=== PATIENT | male | born 1925 | race Caucasian/White ===

== ENCOUNTER 2017-10-06 23:41 | Inpatient (IN) ==
[2017-10-07] MEDS ORDERED: ALBUTEROL NEB SOLN 5 MG/ML 20 ML/BOTTLE CONT NEB STA (00:31)
[2017-10-07] MEDS ORDERED: cefTRIAXone 1,000 MG in SODIUM CHLORIDE 0.9% 100 ML IV STA (00:31)
[2017-10-07] MEDS ORDERED: SODIUM CHLORIDE 0.9% 1,000 ML IV STA (00:31)
[2017-10-07] MEDS ORDERED: PANTOPRAZOLE 40 MG VIAL IV STA (00:31)
[2017-10-07] MEDS ORDERED: ONDANSETRON 4 MG/2 ML VIAL IV STA (00:31)
[2017-10-07] MEDS ORDERED: metroNIDAZOLE INJ 500 MG in PREMIX 1 EACH IV STA (00:31)
[2017-10-07] MEDS ORDERED: metroNIDAZOLE 500 MG/100 ML PREMIX IV ONE (00:43)
[2017-10-07] MEDS ORDERED: cefTRIAXone 1,000 MG VIAL ONE (00:43)
[2017-10-07] MEDS ORDERED: PANTOPRAZOLE 40 MG VIAL IV ONE (00:43)
[2017-10-07] MEDS ORDERED: ONDANSETRON 4 MG/2 ML VIAL ONE (00:43)
[2017-10-07 01:04] LABS: Apearance,Urine CLOUDY (Clear); Bacteria,Urine Many /HPF (Few); Bilirubin,Urine Negative (Negative); Blood, Urine Moderate mg/dL (Negative); Glucose,Urine (UA) Negative (Negative); Ketones,Urine 5 mg/dL (Negative); Mucus,Urine Occasional /LPF (Occasional); Nitrite,Urine Negative (Negative); Protein,Urine 100 MG/DL; RBC,Urine 58 /HPF (0-4); Squamous Epithelial Cell,Urine Occasional /HPF (0-10); Urine Color Amber (Yellow); Urine Specific Gravity 1.017 (1.001-1.035); Urine Urobilinogen < 2.0 EU/DL (0.2-1.0); WBC,Urine 32 /HPF (0-6)
[2017-10-07 01:05] LABS: Hematocrit 43.6 VOL% (42.0-52.0); Hemoglobin 14.3 GM/DL (14.0-18.0); Immature Granulocytes % 0.2 %; Immature Granulocytes Absolute 0.01 #; Lymphocytes # 0.2 10*3/uL (1.4-4.0); Lymphocytes % 3.8 % (21.2-54.2); Mean Corpuscular HGB Conc 32.8 GM/DL (32-36); Mean Corpuscular Hemoglobin 32 PG (27-34); Mean Corpuscular Volume 96.5 FL (87-102); Mean Platelet Volume 11.3 FL (9.6-12.0); Monocytes # 0.6 10*3/uL (0.11-0.8); Monocytes % 13.2 % (1.7-12.7); Neutrophils # 3.7 10*3/uL (1.4-7.4); Neutrophils % 82.8 % (38.7-73.9); Platelet Count 239 T/CUMM (130-400); Red Blood Count 4.52 MC/CUMM (3.8-5.5); Red Cell Distribution Width 13.3 % (9.3-17.3); White Blood Count 4.5 T/CUMM (4-12)
[2017-10-07 01:15] LABS: Alanine Aminotransferase 31 U/L (16-61); Albumin 3.3 G/DL (3.4-5.0); Alkaline Phosphatase 63 U/L (45-117); Amylase 72 U/L (25-115); Aspartate Amino Transferase 44 U/L (0-37); Blood Urea Nitrogen 21 MG/DL (7-18); CKMB % 1.3 %; Calcium 8.1 MG/DL (8.5-10.1); Glucose 113 MG/DL (74-106); Lactic Acid 5.1 MMOL/L (0.4-2.0); Potassium 4.4 MMOL/L (3.5-5.1); Sodium 143 MMOL/L (136-145); Total Protein 6.9 G/DL (6.4-8.3)
[2017-10-07] MEDS ORDERED: SODIUM CHLORIDE 0.9% 2,250 ML IV ONE (03:21)
[2017-10-07 03:37] LABS: Band Neutrophils 26 % (0-10); Lymphocytes 7 % (20-55); Myelocytes 3 %; Segmented Neutrophils 57 % (50-85)
[2017-10-07 03:38] LABS: Platelet Estimate Normal; Total Cells Counted 100
[2017-10-07] MEDS ORDERED: ONDANSETRON 4 MG/2 ML VIAL IV PRN (04:06)
[2017-10-07] MEDS ORDERED: ALBUTEROL 2.5 MG/3 ML NEB RESP TX PRN (04:12)
[2017-10-07] MEDS ORDERED: MAGNESIUM SULF RIDER 4 GM in PREMIX 1 EACH IV PRN (04:21)
[2017-10-07] MEDS ORDERED: MAGNESIUM SULF RIDER 2 GM in PREMIX 1 EACH IV PRN (04:21)
[2017-10-07] MEDS ORDERED: LEVOFLOXACIN INJ 150 ML IV ONE (04:49)
[2017-10-07] MEDS: LEVOFLOXACIN INJ 750 MG in PREMIX 1 EACH IV SCH (04:55)
[2017-10-07 05:05] LABS: Lactic Acid 5.6 MMOL/L (0.4-2.0)
[2017-10-07] MEDS ORDERED: MAGNESIUM SULF INJ 3 GM in SODIUM CHLORIDE 0.9% 100 ML IV ONE (06:00)
[2017-10-07] MEDS ORDERED: GLUCAGON 1 MG VIAL IM PRN (06:16)
[2017-10-07] MEDS: INSULIN LISPRO 100 UNIT/ML SUBCUT SCH ×3 (07:50→17:46)
[2017-10-07] MEDS: ALBUTEROL 2.5 MG/3 ML NEB RESP TX SCH ×3 (07:51→19:13)
[2017-10-07] MEDS: PIPERACILLIN/TAZOBACTAM 3,375 MG in SODIUM CHLORIDE 0.9% 100 ML IV SCH ×2 (08:57→16:19)
[2017-10-07] MEDS: ENOXAPARIN 40 MG/0.4 ML SYRINGE SUBCUT SCH (08:58)
[2017-10-07] MEDS: PANTOPRAZOLE 40 MG VIAL IV SCH (08:58)
[2017-10-07] MEDS: SODIUM CHLORIDE 0.9% 1,000 ML IV SCH ×2 (09:02→14:36)
[2017-10-07] MEDS ORDERED: LORazepam 2 MG/1 ML VIAL IV PRN (09:12)
[2017-10-07 10:11] LABS: Lactic Acid 3.9 MMOL/L (0.4-2.0)
[2017-10-07] MEDS: MORPHINE 2 MG/1 ML SYRINGE IV PRN ×2 (10:38→14:34)
[2017-10-07] MEDS: LORazepam 2 MG/1 ML VIAL IV PRN ×2 (10:39→14:37)
[2017-10-07 15:01] LABS: Lactic Acid 2.5 MMOL/L (0.4-2.0)
[2017-10-08] MEDS: ALBUTEROL 2.5 MG/3 ML NEB RESP TX SCH ×4 (00:27→19:25)
[2017-10-08] MEDS: PIPERACILLIN/TAZOBACTAM 3,375 MG in SODIUM CHLORIDE 0.9% 100 ML IV SCH ×4 (00:39→23:28)
[2017-10-08] MEDS: INSULIN LISPRO 100 UNIT/ML SUBCUT SCH ×4 (01:27→18:45)
[2017-10-08] MEDS: LEVOFLOXACIN INJ 750 MG in PREMIX 1 EACH IV SCH (04:42)
[2017-10-08 06:17] LABS: Basophils % 0.1 % (0.0-0.8); Eosinophils % 0.1 % (0.00-10.9); Hematocrit 34.3 VOL% (42.0-52.0); Immature Granulocytes % 2.2 %; Immature Granulocytes Absolute 0.25 #; Lymphocytes # 0.5 10*3/uL (1.4-4.0); Mean Corpuscular HGB Conc 34.1 GM/DL (32-36); Mean Corpuscular Hemoglobin 32 PG (27-34); Mean Corpuscular Volume 93.7 FL (87-102); Mean Platelet Volume 11.8 FL (9.6-12.0); Monocytes # 0.9 10*3/uL (0.11-0.8); Monocytes % 8.2 % (1.7-12.7); Neutrophils # 9.7 10*3/uL (1.4-7.4); Neutrophils % 85.4 % (38.7-73.9); Red Blood Count 3.66 MC/CUMM (3.8-5.5); Red Cell Distribution Width 13.7 % (9.3-17.3)
[2017-10-08 06:28] LABS: Calcium 7.9 MG/DL (8.5-10.1); Osmolality,Calculated 288.7 MOS/KG (273-304); Potassium 3.7 MMOL/L (3.5-5.1)
[2017-10-08] MEDS: SODIUM CHLORIDE 0.9% 1,000 ML IV SCH (06:44)
[2017-10-08 06:54] LABS: Hemoglobin 11.7 GM/DL (14.0-18.0); Platelet Count 135 T/CUMM (130-400); White Blood Count 11.4 T/CUMM (4-12)
[2017-10-08 06:58] LABS: Band Neutrophils 31 % (0-10); Lymphocytes 14 % (20-55); Segmented Neutrophils 47 % (50-85); Total Cells Counted 100
[2017-10-08 06:59] LABS: Macrocytosis 1+; Platelet Estimate Normal
[2017-10-08] MEDS: LORazepam 2 MG/1 ML VIAL IV PRN ×3 (08:25→18:34)
[2017-10-08] MEDS: DEXTROSE 50% 25 GM/50 ML VIAL IV PRN ×2 (08:27→18:34)
[2017-10-08] MEDS: PANTOPRAZOLE 40 MG VIAL IV SCH (08:30)
[2017-10-08] MEDS: ENOXAPARIN 40 MG/0.4 ML SYRINGE SUBCUT SCH (08:31)
[2017-10-08] MEDS: MORPHINE 2 MG/1 ML SYRINGE IV PRN ×3 (08:48→18:34)
[2017-10-09] MEDS: ALBUTEROL 2.5 MG/3 ML NEB RESP TX SCH ×4 (00:22→19:08)
[2017-10-09] MEDS: INSULIN LISPRO 100 UNIT/ML SUBCUT SCH ×5 (00:24→23:48)
[2017-10-09] MEDS: DEXTROSE 50% 25 GM/50 ML VIAL IV PRN (00:30)
[2017-10-09] MEDS: SODIUM CHLORIDE 0.9% 1,000 ML IV SCH ×2 (03:39→11:35)
[2017-10-09] MEDS: LEVOFLOXACIN INJ 750 MG in PREMIX 1 EACH IV SCH (03:42)
[2017-10-09] MEDS: MORPHINE 2 MG/1 ML SYRINGE IV PRN ×4 (06:33→23:42)
[2017-10-09] MEDS: LORazepam 2 MG/1 ML VIAL IV PRN ×3 (06:38→15:09)
[2017-10-09] MEDS: PIPERACILLIN/TAZOBACTAM 3,375 MG in SODIUM CHLORIDE 0.9% 100 ML IV SCH ×3 (08:54→23:33)
[2017-10-09] MEDS: ENOXAPARIN 40 MG/0.4 ML SYRINGE SUBCUT SCH (08:55)
[2017-10-09] MEDS: PANTOPRAZOLE 40 MG VIAL IV SCH (08:59)
[2017-10-09] MEDS ORDERED: FUROSEMIDE 20 MG/2 ML VIAL IV ONE (15:10)
[2017-10-09] MEDS: NITROGLYCERIN 2% OINT 1 INCH/GM PACK TOP SCH ×2 (15:39→17:26)
[2017-10-10] MEDS: NITROGLYCERIN 2% OINT 1 INCH/GM PACK TOP SCH ×4 (00:15→17:02)
[2017-10-10] MEDS: ALBUTEROL 2.5 MG/3 ML NEB RESP TX SCH ×4 (01:27→19:48)
[2017-10-10] MEDS: INSULIN LISPRO 100 UNIT/ML SUBCUT SCH ×3 (05:32→17:02)
[2017-10-10] MEDS: LEVOFLOXACIN INJ 750 MG in PREMIX 1 EACH IV SCH (05:32)
[2017-10-10] MEDS: PIPERACILLIN/TAZOBACTAM 3,375 MG in SODIUM CHLORIDE 0.9% 100 ML IV SCH ×2 (08:45→17:01)
[2017-10-10] MEDS: PANTOPRAZOLE 40 MG VIAL IV SCH (08:46)
[2017-10-10] MEDS: ENOXAPARIN 40 MG/0.4 ML SYRINGE SUBCUT SCH (08:46)
[2017-10-10] MEDS: FUROSEMIDE 20 MG/2 ML VIAL IV SCH (11:55)
[2017-10-10] MEDS: LORazepam 2 MG/1 ML VIAL IV PRN ×2 (11:55→21:13)
[2017-10-10] MEDS: MORPHINE 2 MG/1 ML SYRINGE IV PRN (11:55)
[2017-10-10] MEDS: SODIUM CHLORIDE 0.9% 1,000 ML IV SCH ×2 (11:55→21:05)
[2017-10-11] MEDS: ALBUTEROL 2.5 MG/3 ML NEB RESP TX SCH ×4 (00:20→08:03)
[2017-10-11] MEDS: INSULIN LISPRO 100 UNIT/ML SUBCUT SCH ×3 (00:35→12:06)
[2017-10-11] MEDS: PIPERACILLIN/TAZOBACTAM 3,375 MG in SODIUM CHLORIDE 0.9% 100 ML IV SCH ×2 (00:52→09:26)
[2017-10-11] MEDS: NITROGLYCERIN 2% OINT 1 INCH/GM PACK TOP SCH ×3 (00:53→12:06)
[2017-10-11] MEDS: LEVOFLOXACIN INJ 750 MG in PREMIX 1 EACH IV SCH (06:22)
[2017-10-11 06:28] LABS: Calcium 8.3 MG/DL (8.5-10.1); Osmolality,Calculated 294.4 MOS/KG (273-304); Potassium 2.8 MMOL/L (3.5-5.1)
[2017-10-11] MEDS ORDERED: POTASSIUM CHLORIDE RIDER 10 MEQ in PREMIX 1 EACH IV PRN (08:07)
[2017-10-11] MEDS: ENOXAPARIN 40 MG/0.4 ML SYRINGE SUBCUT SCH (09:25)
[2017-10-11] MEDS: FUROSEMIDE 20 MG/2 ML VIAL IV SCH (09:25)
[2017-10-11] MEDS: MORPHINE 2 MG/1 ML SYRINGE IV PRN (09:25)
[2017-10-11] MEDS: LORazepam 2 MG/1 ML VIAL IV PRN (09:25)
[2017-10-11] MEDS: PANTOPRAZOLE 40 MG VIAL IV SCH (09:26)
[2017-10-11] MEDS ORDERED: POTASSIUM CHLORIDE 20 MEQ/15 ML UDCUP PER TUBE PRN (09:35)
[2017-10-11] MEDS ORDERED: LEVOFLOXACIN 750 MG TABLET PO SCH (10:00)
[2017-10-11 12:36] VITALS: BP 111/62
== END 2017-10-11 13:05 | disposition hospice, inpatient (51) | DRG 871 ==
LOC: EDBD → EDUNIT# → N.ED 23:41 → SUATTDRO 10-07 04:06 → N.EDINP 10-07 04:06 → N.5E 10-07 04:46
PROVIDERS: ADMIT Internal Medicine; ATTEND Internal Medicine Cardiovascular Disease